=== PATIENT | male | born 1960 | race Two or more races ===

== ENCOUNTER 2018-09-18 14:44 | Emergency (ER) | payer OTHER ==
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
[2018-09-18] MEDS ORDERED: Lidocaine 1%* 5 ML VIAL INJ ONE (15:43)
[2018-09-18] MEDS ORDERED: ceFAZolin 1 GM ADVAN(*) 1 GM in NS 0.9% 50 ML* 50 ML IVPB ONE (15:43)
[2018-09-18] MEDS ORDERED: Ibuprofen TAB* 400 MG PO ONE (15:47)
[2018-09-18] MEDS ORDERED: Tetan/Diph/Pertus SYR(Tdap)* 0.5 ML SYR(BOOSTRIX) use SYR IM ONE (16:52)
[2018-09-18 17:18] VITALS: BP 128/76
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
== END 2018-09-18 17:15 | disposition home or self-care (01) ==
LOC: ED 14:44
DX: S62.632B Displaced fracture of distal phalanx of right middle finger, initial encounter for open fracture (principal); S61.302A Unspecified open wound of right middle finger with damage to nail, initial encounter; W31.89XA Contact with other specified machinery, initial encounter; Y93.H2 Activity, gardening and landscaping; Y92.017 Garden or yard in single-family (private) house as the place of occurrence of the external cause; Y99.8 Other external cause status; I95.9 Hypotension, unspecified; R42 Dizziness and giddiness
CPT/HCPCS: 11760; 73140; 90715; 96361; 96372; 96374; 99283; A9270-GY; J0690

== ENCOUNTER 2018-09-21 12:14 | Day surgery (SDC) | payer OTHER ==
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
[~2018-09-21 12:14] MED LIST: Buffered Lidocaine 1% SYRIN* 1 ML/SYRINGE INTRADERM ONE; Lactated Ringers 1000 ML Bag* 1,000 ML IV SCH; Lidocaine 1% INJ* 10 MG/ML 30 ML SDV ONE
[2018-09-21] MEDS ORDERED: Acetaminophen TAB* 325 MG PO PRN (13:25)
[2018-09-21] MEDS ORDERED: PROCHLORPERAZINE INJ 5 MG/ML 2 ML VIAL IV PRN (13:25)
[2018-09-21] MEDS ORDERED: Ondansetron INJ* 2 MG/ML VIAL IV PRN (13:25)
[2018-09-21] MEDS ORDERED: fentaNYL* 50 MCG/ML 2 ML VIAL (100 MCG VIAL) IV PRN (13:25)
[2018-09-21] MEDS ORDERED: Naloxone* 0.4 MG/ML 1 ML VIAL IV PRN (13:25)
[2018-09-21] MEDS ORDERED: diPHENhydraMINE IV* 50 MG/ML 1 ml VIAL (BENADRYL) IV PRN (13:25)
[2018-09-21] MEDS ORDERED: HYDROcodone/ACETAMIN 5-325 MG* 1 TAB PO PRN (13:25)
[2018-09-21] MEDS ORDERED: DiMENhydriNATE IV* 50 MG/ML VIAL IV PUSH PRN (13:25)
[2018-09-21] MEDS ORDERED: Midazolam* 1 MG/ML 2 ML VIAL (2 MG) ONE (13:51)
[2018-09-21] MEDS ORDERED: fentaNYL* 50 MCG/ML 2 ML VIAL (100 MCG VIAL) ONE (13:51)
[2018-09-21] MEDS ORDERED: Lidocaine 2% PF * 5 ML VIAL ONE (14:37)
[2018-09-21] MEDS ORDERED: Propofol* 10 MG/ML 20 ML BTL ONE (14:37)
[2018-09-21] MEDS ORDERED: Ketorolac INJ* 30 MG/ML 1 ML VIAL ONE (14:37)
[2018-09-21 16:03] VITALS: BP 138/76
--- NOTE | 2018-09-23 19:56 | OP ---
DATE OF OPERATION: 09/21/18 [facility] DATE OF : 64 SURGEON: Milagro Brasher MD. HAND TRUCKER: DELISA De La Rosa and DELISA Moulton. ANESTHESIA: Local MAC. PRE-OP DIAGNOSIS: Crush injury of the right long finger. POST-OP DIAGNOSIS: Crush injury of the right long finger. OPERATIVE PROCEDURE: Right long finger nail bed repair. 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 He suffered an injury of his right middle finger. He had an x-ray which shows a comminuted fracture of the tuft to the distal phalanx. His nail is avulsed from the eponychial fold. He presents for nail bed repair, right long finger. ESTIMATED BLOOD LOSS: Zero. TOURNIQUET TIME: About 15 minutes. DESCRIPTION OF PROCEDURE: The patient was brought to the operating room, was given a sedation anesthetic and a digital block with 10 cc of 1% plain lidocaine. The skin of his right hand and forearm was prepped and draped in the usual sterile fashion. A Tourni-Cot was placed on the finger and the previously placed sutures were removed. The wound was copiously irrigated with saline. The fracture fragments were reduced with a Sparks elevator and then the fingernail was placed back in the eponychial fold. The skin edges were then reapproximated with a 4-0 Monocryl suture. The finger nail was sutured to the eponychial fold into the lateral aspect of the finger to keep the finger nail reduced and allow the nail bed underneath the heal. The wound was dressed with Xeroform, 4x4, Kerlix, and Coban. The patient tolerated the procedure well. The tourniquet was removed. He was brought to the recovery room in good condition. [id number]/[facility] #: [id number] [facility] HOSPITALStephan
== END 2018-09-21 16:01 | disposition home or self-care (01) ==
LOC: OREAST 12:14
PROVIDERS: ATTEND Orthopaedic Surgery
DX: S67.192A Crushing injury of right middle finger, initial encounter (principal); S62.632B Displaced fracture of distal phalanx of right middle finger, initial encounter for open fracture; W31.89XA Contact with other specified machinery, initial encounter; Y92.9 Unspecified place or not applicable
CPT/HCPCS: J1885; J2250; J2704; J3010